=== PATIENT | male | born 1990 | race African-American/Black ===

== ENCOUNTER 2021-11-02 15:03 | Emergency (ER) | payer OTHER ==
[2021-11-02] MEDS ORDERED: ONDANSETRON 4 MG/2 ML VIAL ONE (15:45)
[2021-11-02] MEDS ORDERED: MORPHINE 4 MG/ML SYR ONE (15:45)
--- NOTE | 2021-11-02 15:58 | RAD REPORT ---
EXAM DESCRIPTION: CT - Head C Spine Mpr Wo Con - 11/02/2021 3:36 pm CLINICAL HISTORY: Seizure /Head and neck injury status post fall. Head and neck pain COMPARISON: None. TECHNIQUE: Computed axial tomography of the head and cervical spine was obtained. Sagittal and coronal reconstruction was performed. All CT scans are performed using dose optimization technique as appropriate and may include automated exposure control or mA/KV adjustment according to patient size. FINDINGS: An intracranial bleed is not seen. The ventricles are normal in caliber. An extra-axial fl uid collection is not noted.Fluid within the visualized sinuses and mastoids is not seen A cervical fracture is not visualized. No dislocation is noted. IMPRESSION: No acute intracranial abnormality is seen. A cervical fracture is not visualized. If the patient continues to have symptoms to suggest intracra nial /spinal cord pathology then MRI would be recommended
[2021-11-02 16:06] LABS: Urine Blood Negative (Negative); Urine Glucose Negative (Negative); Urine Protein Negative (Negative); Urine Specific Gravity 1.025 (1.005-1.030)
[2021-11-02 16:28] LABS: Barbiturates NEGATIVE (NEGATIVE); Benzodiazepines NEGATIVE (NEGATIVE); Cocaine NEGATIVE (NEGATIVE); METHAMPHETAM NEGATIVE (NEGATIVE); Methadone NEGATIVE (NEGATIVE); Opiates NEGATIVE (NEGATIVE); Phencyclidine NEGATIVE (NEGATIVE); THC Cannibis NEGATIVE (NEGATIVE)
--- NOTE | 2021-11-02 16:43 | RAD REPORT ---
EXAM DESCRIPTION: RAD - Shoulder Right 2 View - 11/02/2021 4:04 pm CLINICAL HISTORY: Right shoulder pain FINDINGS: No fracture seen Humeral head dislocation.
--- NOTE | 2021-11-02 16:44 | RAD REPORT ---
EXAM DESCRIPTION: RAD - Elbow Right 3 View - 11/02/2021 4:05 pm CLINICAL HISTORY: Elbow pain FINDINGS: No fracture or dislocation seen
[2021-11-02 17:02] LABS: Absolute Lymphocytes (CBC) 3.4 K/uL (0.7-4.9); Hematocrit 45.3 % (39.6-49.0); Lymphocytes % 35.1 % (15.3-44.8); MPV 6.8 fL (7.6-11.3); RBC Red Blood Cell Count 5.02 M/uL (4.33-5.43)
[2021-11-02] MEDS ORDERED: FENTANYL CITR 100 MCG/2 ML ONE (17:03)
[2021-11-02] MEDS ORDERED: propofoL 200 MG/20 ML VIAL IV ONE ×2 (17:03→17:25)
[2021-11-02 17:04] LABS: Protime INR 0.99
[2021-11-02 17:12] LABS: ALT/SGPT 46 U/L (12-78); AST/SGOT 13 U/L (15-37); Albumin 3.6 g/dL (3.4-5.0); Alkaline Phosphatase 117 U/L (45-117); BUN Blood Urea Nitrogen 11 mg/dL (7-18); Bicarbonate 28 mmol/L (21-32); Bilirubin Total 0.3 mg/dL (0.2-1.0); Glucose Level 78 mg/dL (74-106); Potassium 4.1 mmol/L (3.5-5.1); Protein, Total 8.3 g/dL (6.4-8.2); Sodium Level 137 mmol/L (136-145)
[2021-11-02 17:14] LABS: Bilirubin Direct < 0.1 mg/dL (0-0.2)
[2021-11-02] MEDS ORDERED: NA CHLORIDE 0.9% 1,000 ML ONE (17:29)
[2021-11-02] MEDS ORDERED: LEVETIRACETAM 500 MG/5 ML VIAL IV ONE (18:55)
[2021-11-02] MEDS ORDERED: KETOROLAC 30 MG/ML INJ ONE (18:59)
[2021-11-02] MEDS ORDERED: NA CHLORIDE 0.9% 100 ML IV ONE (19:00)
--- NOTE | 2021-11-02 19:13 | EDPHYS ---
Physician Documentation [facility] Name: Emily Schwartz Age: 31 yrs Sex: Male : 1990 Arrival Date: 11/02/2021 Time: 15:08 Bed 26 Private MD: ED Physician Dung Kaplan HPI: 11/02 15:20 This 31 yrs old Black Male presents to ER via Law Enforcement with complaints of cp Seizure, Shoulder Pain. 15:20 The patient presents after having a single isolated seizure, that lasted an unknown cp period of time, the episode(s) was witnessed, correctional program officer. Character of seizure(s): Loss of consciousness: the patient experienced loss of consciousness, Motor activity: generalized, shaking all over. Seizure onset: today, about 1300. Context: Contributing factors: non compliance with seizure medication. Seizure Hx: Original onset: longstanding, Seizure medications: Keppra. Associated injury: Right upper extremity: right shoulder, decreased range of motion, pain, tenderness. Current symptoms: right shoulder pain. 15:20 Patient reportedly fell from bed after having seizure for unknown duration. Patient cp reports pain to right shoulder and has history of dislocating right shoulder. Historical: - Allergies: 15:17 No Known Allergies; jl7 - Home Meds: 15:17 aspirin 81 mg Oral tab [Active]; atorvastatin 10 mg oral tab [Active]; Keppra 500 mg jl7 Oral tab [Active]; hydrochlorothiazide 25 mg Oral tab [Active]; - PMHx: 15:17 Seizure; Hypertensive disorder; Hypercholesterolemia; Asthma; jl7 - Immunization history:: Client reports receiving the 2nd dose of the Covid vaccine, Moderna. - Social history:: Smoking status: Patient denies any tobacco usage or history of. ROS: 15:25 Constitutional: Negative for body aches, chills, fever, poor PO intake. cp 15:25 Eyes: Negative for injury, pain, redness, and discharge. cp 15:25 Neck: Negative for stiffness. 15:25 Cardiovascular: Negative for chest pain, edema, palpitations. 15:25 Respiratory: Negative for cough, shortness of breath, wheezing. 15:25 Abdomen/GI: Negative for abdominal pain, nausea, vomiting, and diarrhea. 15:25 Back: Negative for pain at rest, pain with movement. 15:25 MS/extremity: Positive for injury or acute deformity, decreased range of motion, pain, of the right shoulder, Negative for paresthesias. 15:25 Neuro: Positive for history of seizure, Negative for altered mental status, headache. 15:25 All other systems are negative. Exam: 15:30 Constitutional: The patient appears in no acute distress, alert, awake, non-toxic, well cp developed, well nourished, obese. 15:30 Head/Face: Normocephalic, atraumatic. cp 15:30 Eyes: Periorbital structures: appear normal, Pupils: equal, round, and reactive to light and accomodation, Extraocular movements: intact throughout, Conjunctiva: normal, no exudate, no injection, Sclera: no appreciated abnormality, Lids and lashes: appear normal, bilaterally. 15:30 ENT: External ear(s): are unremarkable, Nose: is normal, Mouth: Lips: moist, Oral mucosa: moist, Posterior pharynx: Airway: no evidence of obstruction, patent. 15:30 Neck: C-spine: vertebral tenderness, that is mild, appreciated at C5 and C6, crepitus, is not appreciated, ROM/movement: is normal, is supple, without pain, no range of motions limitations. 15:30 Chest/axilla: Inspection: normal, Palpation: is normal, no crepitus, no tenderness. 15:30 Cardiovascular: Rate: normal, Rhythm: regular, Pulses: Pulses are 2+ in right radial artery and left radial artery. Heart sounds: murmur, not appreciated. 15:30 Respiratory: the patient does not display signs of respiratory distress, Respirations: normal, no use of accessory muscles, no retractions, labored breathing, is not present, Breath sounds: are clear throughout, no decreased breath sounds, no stridor, no wheezing. 15:30 Abdomen/GI: Inspection: abdomen appears normal, Palpation: abdomen is soft and non-tender, in all quadrants. 15:30 Back: pain, is absent, ROM is normal. 15:30 Musculoskeletal/extremity: Extremities: grossly normal except: noted in the right shoulder: decreased ROM, pain, tenderness, ROM: limited active range of motion, in the right shoulder, Perfusion: the extremity is normally perfused throughout, the right arm Sensation intact. 15:30 Neuro: Orientation: to person, place \T\ time. Mentation: is normal. 16:05 ECG was reviewed by the Attending Physician. cp Vital Signs: 15:16 BP 124 / 98; Pulse 89; Resp 17; Temp 98.8; Pulse Ox 98% on R/A; Weight 140.61 kg; jl7 Height 6 ft. 0 in. (182.88 cm); Pain 10/10; 16:22 BP 125 / 95; Pulse 75; Resp 20; Pulse Ox 98% on R/A; lr4 19:24 BP 133 / 68; Pulse 69; Resp 20; Pulse Ox 99% ; lr4 15:16 Body Mass Index 42.04 (140.61 kg, 182.88 cm) jl7 [place] Coma Score: 15:17 Eye Response: spontaneous(4). Verbal Response: oriented(5). Motor Response: obeys jl7 commands(6). Total: 15. MDM: 15:13 Patient medically screened. cp 19:10 Data reviewed: vital signs, nurses notes, lab test result(s), EKG, radiologic studies, cp plain films. 19:10 Test interpretation: by ED physician or midlevel provider: ECG, plain radiologic cp studies. Response to treatment: the patient's symptoms have markedly improved after treatment, shoulder relocated. No seizure activity observed while monitoring patient in ED. Patient refuses administration of seizure medication at this time. Will discharge back into custody of correctional officers. 11/02 15:13 Order name: Acetaminophen; Complete Time: 19:01 cp 11/02 15:13 Order name: Basic Metabolic Panel; Complete Time: 19: cp 11/02 15:13 Order name: CBC with Diff; Complete Time: 19: cp 11/02 19:02 Interpretation: Normal except: PLT 409; MPV 6.8. cp 11/02 15:13 Order name: ETOH Level; Complete Time: 19: cp 11/02 15:13 Order name: Hepatic Function; Complete Time: 19: cp 11/02 19:02 Interpretation: Normal except: AST 13; TP 8.3; GLOB 4.7; A/G 0.8. cp 11/02 15:13 Order name: PT-INR; Complete Time: 19: cp 11/02 15:13 Order name: Ptt, Activated; Complete Time: 19: cp 11/02 15:13 Order name: Salicylate; Complete Time: 19:01 cp 11/02 15:13 Order name: Urine Drug Screen; Complete Time: 16:45 cp 11/02 19:02 Interpretation: Reviewed. cp 11/02 15:13 Order name: CT Head C Spine; Complete Time: 16:45 cp 11/02 16:45 Interpretation: Reviewed report. cp 11/02 15:13 Order name: XRAY Shoulder RIGHT 2 view; Complete Time: 16:45 cp 11/02 16:46 Interpretation: Reviewed. cp 11/02 15:13 Order name: XRAY Elbow RIGHT 3 view; Complete Time: 16:45 cp 11/02 16:46 Interpretation: Report reviewed. cp 11/02 16:05 Order name: Urine Dipstick-Ancillary; Complete Time: 16:45 EDMS 11/02 15:13 Order name: EKG; Complete Time: 15:13 cp 11/02 15:13 Order name: EKG - Nurse/Tech; Complete Time: 16:18 cp 11/02 15:13 Order name: IV Saline Lock; Complete Time: 16:18 cp 11/02 15:13 Order name: Labs collected and sent; Complete Time: 16:18 cp 11/02 15:13 Order name: Suicide Screening ([place]); Complete Time: 16:23 cp 11/02 18:58 Order name: Shoulder 1 View; Complete Time: 19:39 EDMS 11/02 19:39 Interpretation: Report reviewed. cp 11/02 15:13 Order name: Urine Dipstick-Ancillary (obtain specimen); Complete Time: 16:18 cp EC:05 Rate is 72 beats/min. Rhythm is regular. GA interval is normal. QRS interval is normal. cp QT interval is normal. T waves are Inverted in lead aVR. Interpreted by me. Reviewed by me. Administered Medications: 16:21 Drug: Zofran (Ondansetron) 4 mg Route: IVP; Site: left antecubital; lr4 16:22 Follow up: Response: No adverse reaction lr4 16:22 Drug: morphine 4 mg Route: IVP; Site: left antecubital; lr4 16:22 Follow up: Response: Pain is decreased lr4 17:26 Drug: fentaNYL (PF) 25 mcg Route: IVP; Site: left antecubital; lr4 17:47 Follow up: Response: Pain is increased lr4 17:28 Drug: Propofol 100 mg Route: IVP; Site: left antecubital; lr4 17:47 Follow up: Response: No adverse reaction lr4 17:30 Drug: Propofol 100 mg Route: IVP; Site: left antecubital; lr4 17:48 Follow up: Response: No adverse reaction lr4 17:47 Drug: fentaNYL (PF) 25 mcg Route: IVP; Site: left antecubital; lr4 18:50 Follow up: Response: Pain is decreased lr4 18:26 Drug: Propofol 100 mg Route: IVP; Site: left antecubital; lr4 19:23 Follow up: Response: No adverse reaction lr4 19:02 Drug: Ketorolac 30 mg Route: IVP; Site: left antecubital; lr4 19:02 Follow up: Response: Pain is decreased lr4 19:23 Not Given (Patient Refused): Keppra (levETIRAcetam) 1000 mg IV at calculated rate once lr4 Disposition: 19:40 Co-signature as Attending Physician, Dung Kaplan MD I agree with the assessment and kdr plan of care. Disposition Summary: 11/02/21 19:12 Discharge Ordered Location: Home cp Problem: new cp Symptoms: have improved cp Condition: Stable cp Diagnosis - Other seizures cp - Other dislocation of right shoulder joint cp Followup: cp - With: Private Physician - When: 2 - 3 days - Reason: Recheck today's complaints Discharge Instructions: - Discharge Summary Sheet cp - Shoulder Dislocation cp - Seizure, Adult cp Forms: - Medication Reconciliation Form cp - Thank You Letter cp - Antibiotic Education cp - Prescription Opioid Use cp Prescriptions: - Ibuprofen 800 mg Oral Tablet - take 1 tablet by ORAL route every 8 hours As needed take with food; 30 tablet; cp Refills: 0, Product Selection Permitted Signatures: Dispatcher [employer] EDMS Dung Kaplan MD MD kdr Jarett Machado PA PA cp Mariely Douglass RN RN jl7 Kathya Billings RN RN lr4 Corrections: (The following items were deleted from the chart) 17:41 17:39 Shoulder Right 2 View+RAD.RAD.BRZ ordered. EDMS EDMS 18:58 17:39 Shoulder Right 2 View+RAD.RAD.BRZ ordered. EDMS EDMS
--- NOTE | 2021-11-02 19:13 | ER ---
Nurse's Notes [facility] Name: Emily Schwartz Age: 31 yrs Sex: Male : 1990 Arrival Date: 11/02/2021 Time: 15:08 Bed 26 Private MD: Diagnosis: Other seizures;Other dislocation of right shoulder joint Presentation: 11/02 15:08 Chief complaint: [facility] unit nurse reports pt reported having a seizure, fell of the 7 bed and is c/o right shoulder pain, pt A\\T\\Ox4. Coronavirus screen: At this time, the client does not indicate any symptoms associated with coronavirus-19. Ebola Screen: No symptoms or risks identified at this time. Onset of symptoms was November 02, 2021. Care prior to arrival: Right arm in sling. 15:08 Method Of Arrival: Law Enforcement: [place] [employer] jl7 15:08 Acuity: MARIA E 3 jl7 15:16 Initial Sepsis Screen: Does the patient meet any 2 criteria? No. Patient's initial jl7 sepsis screen is negative. Does the patient have a suspected source of infection? No. Patient's initial sepsis screen is negative. Risk Assessment: Do you want to hurt yourself or someone else? Patient reports no desire to harm self or others. Triage Assessment: 15:17 General: Appears in no apparent distress. uncomfortable, Behavior is calm, cooperative, jl7 appropriate for age. Pain: Complains of pain in right shoulder and posterior neck Pain currently is 10 out of 10 on a pain scale. Neuro: Level of Consciousness is awake, alert, obeys commands, Oriented to person, place, time, situation. Cardiovascular: Patient's skin is warm and dry. Respiratory: Airway is patent Respiratory effort is even, unlabored, Respiratory pattern is regular, symmetrical. Derm: Skin is pink, warm \\T\\ dry. Historical: - Allergies: 15:17 No Known Allergies; jl7 - Home Meds: 15:17 aspirin 81 mg Oral tab [Active]; atorvastatin 10 mg oral tab [Active]; Keppra 500 mg jl7 Oral tab [Active]; hydrochlorothiazide 25 mg Oral tab [Active]; - PMHx: 15:17 Seizure; Hypertensive disorder; Hypercholesterolemia; Asthma; jl7 - Immunization history:: Client reports receiving the 2nd dose of the Covid vaccine, Moderna. - Social history:: Smoking status: Patient denies any tobacco usage or history of. Screenin:25 Abuse screen: Denies threats or abuse. Denies injuries from another. Nutritional jl7 screening: No deficits noted. Tuberculosis screening: No symptoms or risk factors identified. Fall Risk IV access (20 points). Total Morrison Fall Scale indicates No Risk (0-24 pts). Assessment: 16:19 General: Appears in no apparent distress. comfortable, Behavior is calm, cooperative. lr4 Pain: Complains of pain in right arm Pain currently is 8 out of 10 on a pain scale. Neuro: No deficits noted. Cardiovascular: No deficits noted. Respiratory: No deficits noted. Musculoskeletal: Circulation, motion, and sensation intact. Capillary refill < 3 seconds, Range of motion: limited in right shoulder Swelling absent Tenderness present in right arm Reports pain in right arm and R shoulder. Psych: 16:24 [place] Suicide Severity Screening: In the past month, have you wished you were lr4 or wished you could go to sleep and not wake up? Patient responds "No." "In the past month, have you actually had any thoughts of killing yourself?" Patient responds "no." "In your lifetime, have you ever done anything, started to do anything, or prepared to do anything to end your life?" Patient responds "no.". Subjective: Patient's mood is calm cooperative Delusions are denied, Hallucinations are denied Having thoughts of. Objective: Patient is cooperative. Interventions: intermediate sitter is at bedside, pt shackled. Safety Checks: Door is open. Pt denies substance abuse. Commitment: none. Vital Signs: 15:16 BP 124 / 98; Pulse 89; Resp 17; Temp 98.8; Pulse Ox 98% on R/A; Weight 140.61 kg; jl7 Height 6 ft. 0 in. (182.88 cm); Pain 10/10; 16:22 BP 125 / 95; Pulse 75; Resp 20; Pulse Ox 98% on R/A; lr4 19:24 BP 133 / 68; Pulse 69; Resp 20; Pulse Ox 99% ; lr4 15:16 Body Mass Index 42.04 (140.61 kg, 182.88 cm) jl7 [place] Coma Score: 15:17 Eye Response: spontaneous(4). Verbal Response: oriented(5). Motor Response: obeys jl7 commands(6). Total: 15. ED Course: 15:08 Patient arrived in ED. jl7 15:08 Arm band placed on right wrist. jl7 15:10 Triage completed. jl7 15:10 Jarett Machado PA is PHCP. cp 15:10 Dung Kaplan MD is Attending Physician. cp 15:25 Patient has correct armband on for positive identification. Bed in low position. Call jl7 light in reach. Side rails up X2. Security at bedside. 15:36 CT Head C Spine In Process Unspecified. EDMS 15:39 Kathya Billings, RN is Primary Nurse. lr4 15:58 EKG done, by ED staff, reviewed by Jarett Machado PA by kathya beaulieu. lr4 16:04 XRAY Shoulder RIGHT 2 view In Process Unspecified. EDMS 16:05 XRAY Elbow RIGHT 3 view In Process Unspecified. EDMS 16:18 No provider procedures requiring assistance completed. Inserted saline lock: 20 gauge lr4 in left antecubital area, using aseptic technique. by Kati. 16:20 Initial lab(s) drawn, by ca, sent to lab. dh3 16:21 Seizure precautions initiated. Pulse ox on. NIBP on. Sitter at bedside. Door closed. lr4 Visitors limited. Verbal reassurance given. 18:59 Shoulder 1 View In Process Unspecified. EDMS 19:25 IV discontinued, intact, bleeding controlled, No redness/swelling at site. Pressure lr4 dressing applied. Administered Medications: 16:21 Drug: Zofran (Ondansetron) 4 mg Route: IVP; Site: left antecubital; lr4 16:22 Follow up: Response: No adverse reaction lr4 16:22 Drug: morphine 4 mg Route: IVP; Site: left antecubital; lr4 16:22 Follow up: Response: Pain is decreased lr4 17:26 Drug: fentaNYL (PF) 25 mcg Route: IVP; Site: left antecubital; lr4 17:47 Follow up: Response: Pain is increased lr4 17:28 Drug: Propofol 100 mg Route: IVP; Site: left antecubital; lr4 17:47 Follow up: Response: No adverse reaction lr4 17:30 Drug: Propofol 100 mg Route: IVP; Site: left antecubital; lr4 17:48 Follow up: Response: No adverse reaction lr4 17:47 Drug: fentaNYL (PF) 25 mcg Route: IVP; Site: left antecubital; lr4 18:50 Follow up: Response: Pain is decreased lr4 18:26 Drug: Propofol 100 mg Route: IVP; Site: left antecubital; lr4 19:23 Follow up: Response: No adverse reaction lr4 19:02 Drug: Ketorolac 30 mg Route: IVP; Site: left antecubital; lr4 19:02 Follow up: Response: Pain is decreased lr4 19:23 Not Given (Patient Refused): Keppra (levETIRAcetam) 1000 mg IV at calculated rate once lr4 Outcome: 16:21 Condition: stable lr4 19:12 Discharge ordered by . cp 19:25 Discharged to Law Enforcement lr4 19:25 Discharge instructions given to patient, police. 19:45 Patient left the ED. as6 Signatures: Dispatcher [employer] EDMS Jarett Machado PA PA cp Leal, Jahala, RN RN jl7 Ila Gallagher 3 Sotero Morales RN RN as6 Kathya Billings RN RN lr4
--- NOTE | 2021-11-02 19:30 | RAD REPORT ---
EXAM DESCRIPTION: RAD - Shoulder 1 View - 11/02/2021 7:00 pm CLINICAL HISTORY: Right shoulder dislocation FINDINGS: Previously described dislocation appears reduced
[2021-11-02 19:55] VITALS: TEMP 98.8
[2021-11-02 19:58] VITALS: BP 133/68; O2SAT 99
--- NOTE | 2021-11-04 07:27 | EKG ---
Test Date: 2021-11-02 Test Time: 15:58:56 Certified Medical Aide: ALEX MEASUREMENT RESULTS: Intervals: Rate: 72 NM: 160 QRSD: 82 QT: 348 QTc: 381 [place]: P: 39 NM: 160 QRS: 64 T: 50 INTERPRETIVE STATEMENTS: Normal sinus rhythm Nonspecific ST abnormality Abnormal ECG No previous ECG available for comparison Electronically Signed On 11-04-21 07:22:30 CDT by Remington Roa
== END 2021-11-02 19:45 | disposition home or self-care (01) ==
LOC: ER 15:03
DX: G40.89 Other seizures (principal); S43.084A Other dislocation of right shoulder joint, initial encounter; W06.XXXA Fall from bed, initial encounter; Y92.143 Cell of prison as the place of occurrence of the external cause; I10 Essential (primary) hypertension
CPT/HCPCS: 93005; 85025; 80048; 36415; 80320; 80329 ×2; 85610; 80076; 85730; 81003; 80307; 70450; 72125; 73020; 73080; 73030; 96375; 96374; 99285; J2405; J1953; J2704; J3010; J7030

== ENCOUNTER 2021-11-16 09:45 | Emergency (ER) | payer OTHER ==
--- NOTE | 2021-11-16 11:13 | RAD REPORT ---
EXAM DESCRIPTION: RAD - Shoulder Right 2 View - 11/16/2021 10:53 am CLINICAL HISTORY: PAIN COMPARISON: Shoulder Right 2 View dated 11/02/2021 FINDINGS/IMPRESSION: Right shoulder dislocation, anterior inferior. No fracture identified.
[2021-11-16] MEDS ORDERED: ONDANSETRON 4 MG/2 ML VIAL ONE (11:29)
[2021-11-16] MEDS ORDERED: MORPHINE 4 MG/ML SYR ONE (11:29)
[2021-11-16] MEDS ORDERED: KETOROLAC 30 MG/ML INJ ONE (11:34)
[2021-11-16] MEDS ORDERED: NA CHLORIDE 0.9% 500 ML ONE (11:34)
[2021-11-16] MEDS ORDERED: ETOMIDATE 20 MG/10 ML VIAL IV ONE (11:39)
[2021-11-16] MEDS ORDERED: MIDAZOLAM HCL 2 MG/2 ML INJ ONE (11:39)
[2021-11-16] MEDS ORDERED: LORazepam 2 MG/ML VIAL ONE ×2 (11:59→12:03)
[2021-11-16] MEDS ORDERED: LEVETIRACETAM 500 MG/5 ML VIAL IV ONE (12:03)
[2021-11-16] MEDS ORDERED: NA CHLORIDE 0.9% 100 ML IV ONE (12:04)
--- NOTE | 2021-11-16 12:15 | RAD REPORT ---
EXAM DESCRIPTION: RAD - Shoulder 1 View - 11/16/2021 12:10 pm CLINICAL HISTORY: post reduction COMPARISON: Shoulder 1 View dated 11/02/2021 FINDINGS/IMPRESSION: The right shoulder appears relocated on this single view. Possible shoulder sravani nt effusion.
[2021-11-16 12:27] LABS: Hematocrit 41.4 % (39.6-49.0); Lymphocytes % 36.9 % (15.3-44.8); MPV 6.7 fL (7.6-11.3); RBC Red Blood Cell Count 4.63 M/uL (4.33-5.43)
[2021-11-16 12:44] LABS: ALT/SGPT 46 U/L (12-78); AST/SGOT 17 U/L (15-37); Albumin 3.3 g/dL (3.4-5.0); Alkaline Phosphatase 100 U/L (45-117); BUN Blood Urea Nitrogen 14 mg/dL (7-18); Bicarbonate 24 mmol/L (21-32); Bilirubin Total 0.3 mg/dL (0.2-1.0); Glucose Level 84 mg/dL (74-106); Protein, Total 7.8 g/dL (6.4-8.2); Sodium Level 138 mmol/L (136-145)
--- NOTE | 2021-11-16 13:00 | RAD REPORT ---
EXAM DESCRIPTION: CT - Shoulder Right Wo Cont - 11/16/2021 12:47 pm CLINICAL HISTORY: dislocation/reduction COMPARISON: Shoulder 1 View dated 11/16/2021; Shoulder Right 2 View dated 11/16/2021 TECHNIQUE: Axial 3 millimeter noncontrast images of right shoulder were obtained with sagittal and c oronal reformatted images generated and reviewed. All CT scans are performed using dose optimization technique as appropriate and may include automate d exposure control or mA/KV adjustment according to patient size. FINDINGS: Due to motion on the initial acquisition repeat imaging of the shoulder joint was obtained . Scapula is intact. No clavicle fracture. Sternoclavicular and acromioclavicular joints normal as well . No proximal humerus fracture is present. On the initial acquisition the humeral head is normally po sitioned relative to the bony glenoid. On the second acquisition the humeral head is posteriorly disp laced with the apex of the humeral head articular surface perched on the posterior rim of the glenoid . By technologist report, the patient is changing position often. The posterior displacement on the s econd acquisition may be due to joint laxity. IMPRESSION: No fracture of the proximal humerus, clavicle or scapula. On the initial acquisition the humeral head is normally positioned relative to the glenoid. On the se cond acquisition there is posterior displacement of the humeral head with the articular apex perched on the posterior acetabular rim. Patient likely has significant joint laxity that allows for this deg ree of movement.
--- NOTE | 2021-11-16 13:32 | ER ---
Nurse's Notes [facility] Name: Emily Schwartz Age: 31 yrs Sex: Male : 1990 Arrival Date: 11/16/2021 Time: 09:48 Bed 2 Private MD: Diagnosis: Recurrent dislocation, right shoulder;Epileptic seizures related to external causes, not intractable Presentation: 11/16 09:49 Chief complaint: Patient states: woke up this am and rt shoulder was hurting worse. [facility] Reports that he was seen 1wk prior for dislocated rt shoulder and has been wearing his sling. Coronavirus screen: Vaccine status: Patient reports receiving the 2nd dose of the covid vaccine. Ebola Screen: Patient negative for fever greater than or equal to 101.5 degrees Fahrenheit, and additional compatible Ebola Virus Disease symptoms Patient denies exposure to infectious person. Initial Sepsis Screen: Does the patient meet any 2 criteria? No. Patient's initial sepsis screen is negative. Does the patient have a suspected source of infection? No. Patient's initial sepsis screen is negative. Risk Assessment: Do you want to hurt yourself or someone else? Patient reports no desire to harm self or others. Onset of symptoms was November 16, 2021. 09:49 Method Of Arrival: Ambulatory [facility] 09:49 Acuity: MARIA E 3 [facility] Triage Assessment: 09:52 General: Appears in no apparent distress. Behavior is calm, cooperative. Pain: [facility] Complains of pain in anterior aspect of right shoulder Pain currently is 6 out of 10 on a pain scale. Quality of pain is described as aching, shooting. Historical: - Home Meds: 09:51 aspirin 81 mg Oral tab [Active]; [facility] - PMHx: 09:51 Asthma; Hypercholesterolemia; Hypertensive disorder; Seizure; [facility] - Immunization history:: Adult Immunizations up to date. - Social history:: Smoking status: Patient denies any tobacco usage or history of. - Family history:: not pertinent. Screenin:53 Abuse screen: Denies threats or abuse. Nutritional screening: No deficits noted. [facility] Tuberculosis screening: No symptoms or risk factors identified. Fall Risk Gait- Impaired (20 pts.). Assessment: 09:50 General: Appears uncomfortable, Behavior is calm, cooperative. [facility] 09:50 Pain: Complains of pain in right arm Pain currently is 9 out of 10 on a pain scale. jh6 Quality of pain is described as aching, shooting, Pain began suddenly, Is continuous, Aggravated by increased activity, repositioning. 10:30 Reassessment: No changes from previously documented assessment. Patient and/or family 6 updated on plan of care and expected duration. Pain level reassessed. pt relaxed, on monitor and shoulder immobilizer in place that pt came from [facility] with. 11:35 Reassessment: No changes from previously documented assessment. 6 11:35 Reassessment: pt set up for reduction of shoulder. pt alert iv in place and fluids 6 running. n/c 2lpm placed on pt and suction at bedside. 11:40 Reassessment: Attempted to have pt lay on abd and reduce rt shoulder. Pt was jh6 cooperative but was unable to reduce dislocation. further meds for sedation was ordered by Dr Sapp and RT called. . 11:50 Reassessment: Pt tolerated reduction well. 4mg of Versed given and 12mg Etomidate sivp. 6 RT at bedside and shoulder immobilizer used while waiting for x ray. . 12:05 Reassessment: pt had seizure lasting aprox 1-2min. MD Sapp aware and meds ordered. 6 Respiratory therapy at bedside. 12:52 General: Appears in no apparent distress. Behavior is calm, cooperative. Pain: 6 Complains of pain in anterior aspect of right shoulder and posterior aspect of right shoulder Pain currently is 9 out of 10 on a pain scale. Quality of pain is described as aching, Pain began suddenly, Aggravated by increased activity, repositioning. Neuro: No deficits noted. Level of Consciousness is awake, alert, Oriented to person, place, time. 13:20 Reassessment: Patient and/or family updated on plan of care and expected duration. Pain jh6 level reassessed. pt alert NAD noted, pt states that he is having rt shoulder pain. 13:20 Pain: Complains of pain in anterior aspect of right shoulder and posterior aspect of jh6 right shoulder Pain currently is 9 out of 10 on a pain scale. Quality of pain is described as aching, shooting. Vital Signs: 09:49 BP 135 / 89; Pulse 90; Resp 17; Temp 98.6(O); Pulse Ox 96% on R/A; Weight 139.71 kg; jh6 Height 6 ft. 0 in. (182.88 cm); Pain 8/10; 11:41 BP 147 / 100; Pulse 87; Resp 20; Pulse Ox 100% ; Pain 10/10; jh6 11:41 BP 147 / 108; Pulse 86; Resp 20; Pulse Ox 100% ; Pain 8/10; jh6 11:45 BP 126 / 105; Pulse 93; Resp 17; Pulse Ox 100% ; jh6 11:53 BP 159 / 99; Pulse 84; Resp 17; Pulse Ox 100% ; jh6 12:08 BP 141 / 104; Pulse 82; Resp 13; Pulse Ox 100% on 2 lpm NC; jh6 12:16 BP 160 / 105; Pulse 82; Resp 18; Pulse Ox 100% ; Pain 7/10; jh6 13:20 BP 130 / 90; Pulse 80; Resp 17; Pulse Ox 100% ; Pain 9/10; jh6 13:45 BP 127 / 82; Pulse 76; Resp 18; Pulse Ox 100% ; Pain 0/10; jh6 09:49 Body Mass Index 41.77 (139.71 kg, 182.88 cm) 6 ED Course: 09:48 Patient arrived in ED. ll1 09:51 Jarett Sapp MD is Attending Physician. luz 09:51 Triage completed. jh6 09:52 Arm band placed on left wrist. Patient placed in an exam room, on a stretcher. jh6 09:53 Call light in reach. Side rails up X 1. Adult w/ patient. jh6 10:54 Shoulder Right (2 View) XRAY In Process Unspecified. EDMS 11:[address] jh6 11:30 Jolly Hanna, PHAM is Primary Nurse. jh6 12:11 Shoulder 1 View In Process Unspecified. EDMS 12:14 Comprehensive Metabolic Panel Sent. mb7 12:14 CBC with Diff Sent. mb7 12:[address] Patient moved back from CT. jh6 12:49 Shoulder Right Wo Cont In Process Unspecified. EDMS 13:32 Omar Manjarrez MD is Referral Physician. luz 13:32 Mark Pitts MD is Referral Physician. luz 13:47 No provider procedures requiring assistance completed. jh6 13:47 IV discontinued, intact, bleeding controlled, No redness/swelling at site. Pressure jh6 dressing applied, iv was d/c'd by pt before nursing staff could remove. no bleeding or swelling noted. Administered Medications: 11:30 Drug: morphine 4 mg Route: IVP; Site: left antecubital; [facility] 11:40 Follow up: Response: Pain is unchanged, physician notified [facility] 11:30 Drug: Zofran (Ondansetron) 4 mg Route: IVP; Site: left antecubital; [facility] 11:40 Follow up: Response: Pain is unchanged, physician notified [facility] 11:40 Drug: NS 0.9% 500 ml Route: IV; Rate: bolus; Site: left antecubital; [facility] 11:40 Drug: Ketorolac 30 mg Route: IVP; Site: left antecubital; [facility] 11:40 Follow up: Response: Pain is unchanged, physician notified [facility] 11:40 Drug: Etomidate 20 mg Route: IVP; Site: left antecubital; [facility] 11:40 Drug: Versed (midazolam) 2 mg Route: IVP; Site: left antecubital; [facility] 11:45 Drug: Ativan (LORazepam) 1 mg Route: IVP; Site: left antecubital; [facility] 12:47 Follow up: Response: No adverse reaction [facility] 11:50 Drug: Keppra (levETIRAcetam) 1000 mg Route: IV; Rate: per protocol; Site: left [facility] antecubital; 12:48 Follow up: Response: No adverse reaction [facility] 12:26 CANCELLED (Duplicate Order): Etomidate 10 mg IVP once [facility] 12:48 Not Given (not indicatedd): Ativan (LORazepam) 1 mg IVP once [facility] 13:41 Drug: Kend[place] (HYDROcodone-acetaminophen) 10 mg-325 mg 1 tabs Route: PO; 6 Outcome: 13:32 Discharge ordered by MD. escobar 13:47 Discharged to home ambulatory. [facility] 13:47 Condition: improved 13:47 Discharge instructions given to patient, Instructed on discharge instructions, follow up and referral plans. Demonstrated understanding of instructions, follow-up care, medications, Prescriptions given X 2. 13:48 Patient left the ED. [facility] Signatures: Dispatcher [employer] EDRI Jarett Sapp MD MD cha Lewis, Lynsay RN RN 1 Jolly Hanna RN RN [facility] Mallorie Yovana mb7
--- NOTE | 2021-11-16 13:32 | EDPHYS ---
Physician Documentation [facility] Name: Emily Schwartz Age: 31 yrs Sex: Male : 1990 Arrival Date: 11/16/2021 Time: 09:48 Bed 2 Private MD: ARIELLA Physician Jarett Sapp HPI: 11/16 10:06 This 31 yrs old Black Male presents to ER via Ambulatory with complaints of shoulder luz dislocated in sleep. 10:06 The patient or guardian complains of decreased range of motion, pain. right shoulder. luz Context: The problem was sustained at home, at a C. Onset: The symptoms/episode began/occurred just prior to arrival, this morning. Modifying factors: the symptoms are alleviated by remaining still, The symptoms are aggravated by movement. The patient has not experienced similar symptoms in the past. Historical: - Home Meds: 09:51 aspirin 81 mg Oral tab [Active]; 6 - PMHx: 09:51 Asthma; Hypercholesterolemia; Hypertensive disorder; Seizure; [facility] - Immunization history:: Adult Immunizations up to date. - Social history:: Smoking status: Patient denies any tobacco usage or history of. - Family history:: not pertinent. ROS: 10:06 Constitutional: Negative for fever, chills, and weight loss, Eyes: Negative for injury, luz pain, redness, and discharge, ENT: Negative for injury, pain, and discharge, Neck: Negative for injury, pain, and swelling, Cardiovascular: Negative for chest pain, palpitations, and edema, Respiratory: Negative for shortness of breath, cough, wheezing, and pleuritic chest pain, Abdomen/GI: Negative for abdominal pain, nausea, vomiting, diarrhea, and constipation, Back: Negative for injury and pain, : Negative for injury, bleeding, discharge, and swelling, Skin: Negative for injury, rash, and discoloration, Neuro: Negative for headache, weakness, numbness, tingling, and seizure, Psych: Negative for depression, anxiety, suicide ideation, homicidal ideation, and hallucinations, Allergy/Immunology: Negative for hives, rash, and allergies, Endocrine: Negative for neck swelling, polydipsia, polyuria, polyphagia, and marked weight changes, Hematologic/Lymphatic: Negative for swollen nodes, abnormal bleeding, and unusual bruising. 10:06 MS/extremity: Positive for pain, tenderness, of the anterior aspect of right shoulder and posterior aspect of right shoulder. Exam: 10:07 Constitutional: This is a well developed, well nourished patient who is awake, alert, luz and in no acute distress. Head/Face: Normocephalic, atraumatic. Eyes: Pupils equal round and reactive to light, extra-ocular motions intact. Lids and lashes normal. Conjunctiva and sclera are non-icteric and not injected. Cornea within normal limits. Periorbital areas with no swelling, redness, or edema. ENT: Nares patent. No nasal discharge, no septal abnormalities noted. Tympanic membranes are normal and external auditory canals are clear. Oropharynx with no redness, swelling, or masses, exudates, or evidence of obstruction, uvula midline. Mucous membranes moist. Neck: Trachea midline, no thyromegaly or masses palpated, and no cervical lymphadenopathy. Supple, full range of motion without nuchal rigidity, or vertebral point tenderness. No Meningismus. Chest/axilla: Normal chest wall appearance and motion. Nontender with no deformity. No lesions are appreciated. Cardiovascular: Regular rate and rhythm with a normal S1 and S2. No gallops, murmurs, or rubs. Normal PMI, no JVD. No pulse deficits. Respiratory: Lungs have equal breath sounds bilaterally, clear to auscultation and percussion. No rales, rhonchi or wheezes noted. No increased work of breathing, no retractions or nasal flaring. Abdomen/GI: Soft, non-tender, with normal bowel sounds. No distension or tympany. No guarding or rebound. No evidence of tenderness throughout. Back: No spinal tenderness. No costovertebral tenderness. Full range of motion. Male : Normal genitalia with no discharge or lesions. Skin: Warm, dry with normal turgor. Normal color with no rashes, no lesions, and no evidence of cellulitis. Neuro: Awake and alert, GCS 15, oriented to person, place, time, and situation. Cranial nerves II-XII grossly intact. Motor strength 5/5 in all extremities. Sensory grossly intact. Cerebellar exam normal. Normal gait. Psych: Awake, alert, with orientation to person, place and time. Behavior, mood, and affect are within normal limits. 10:07 Musculoskeletal/extremity: Extremities: grossly normal except: decreased ROM, deformity, pain, ROM: limited active range of motion due to pain, limited passive range of motion due to pain, Circulation is intact in all extremities. the anterior aspect of right shoulder and posterior aspect of right shoulder Compartment Syndrome exam of affected extremity: is normal. Vital Signs: 09:49 BP 135 / 89; Pulse 90; Resp 17; Temp 98.6(O); Pulse Ox 96% on R/A; Weight 139.71 kg; 6 Height 6 ft. 0 in. (182.88 cm); Pain 8/10; 11:41 BP 147 / 100; Pulse 87; Resp 20; Pulse Ox 100% ; Pain 10/10; 6 11:41 BP 147 / 108; Pulse 86; Resp 20; Pulse Ox 100% ; Pain 8/10; 6 11:45 BP 126 / 105; Pulse 93; Resp 17; Pulse Ox 100% ; 6 11:53 BP 159 / 99; Pulse 84; Resp 17; Pulse Ox 100% ; [facility] 12:08 BP 141 / 104; Pulse 82; Resp 13; Pulse Ox 100% on 2 lpm NC; [facility] 12:16 BP 160 / 105; Pulse 82; Resp 18; Pulse Ox 100% ; Pain 7/10; 6 13:20 BP 130 / 90; Pulse 80; Resp 17; Pulse Ox 100% ; Pain 9/10; 6 13:45 BP 127 / 82; Pulse 76; Resp 18; Pulse Ox 100% ; Pain 0/10; [facility] 09:49 Body Mass Index 41.77 (139.71 kg, 182.88 cm) [facility] MDM: 09:51 Patient medically screened. [facility] 10:08 Differential diagnosis: Anterior dislocation with fracture. Data reviewed: vital signs, [facility] nurses notes, radiologic studies, plain films. Data interpreted: ekg monitor tech: rate is 90 beats/min, rhythm is regular, Pulse oximetry: on room air is 96 %. Test interpretation: by ED physician or midlevel provider: plain radiologic studies. Counseling: I had a detailed discussion with the patient and/or guardian regarding: the historical points, exam findings, and any diagnostic results supporting the discharge/admit diagnosis, lab results, radiology results, the need for outpatient follow up, for definitive care, a orthopedic surgeon. 11/16 11:57 Order name: CBC with Diff; Complete Time: 12:39 [facility] 11/16 11:57 Order name: Comprehensive Metabolic Panel; Complete Time: 12:46 [facility] 11/16 09:55 Order name: Shoulder Right (2 View) XRAY; Complete Time: 12:39 [facility] 11/16 12:11 Order name: Shoulder 1 View; Complete Time: 12:39 [facility] 11/16 12:21 Order name: Shoulder Right Wo Cont EDDE 11/16 11:53 Order name: Shoulder Immobilizer; Complete Time: 12:48 [facility] 11/16 11:57 Order name: Seizure Precautions; Complete Time: 12:47 [facility] Administered Medications: 11:30 Drug: morphine 4 mg Route: IVP; Site: left antecubital; [facility] 11:40 Follow up: Response: Pain is unchanged, physician notified [facility] 11:30 Drug: Zofran (Ondansetron) 4 mg Route: IVP; Site: left antecubital; [facility] 11:40 Follow up: Response: Pain is unchanged, physician notified [facility] 11:40 Drug: NS 0.9% 500 ml Route: IV; Rate: bolus; Site: left antecubital; [facility] 11:40 Drug: Ketorolac 30 mg Route: IVP; Site: left antecubital; [facility] 11:40 Follow up: Response: Pain is unchanged, physician notified [facility] 11:40 Drug: Etomidate 20 mg Route: IVP; Site: left antecubital; [facility] 11:40 Drug: Versed (midazolam) 2 mg Route: IVP; Site: left antecubital; [facility] 11:45 Drug: Ativan (LORazepam) 1 mg Route: IVP; Site: left antecubital; [facility] 12:47 Follow up: Response: No adverse reaction [facility] 11:50 Drug: Keppra (levETIRAcetam) 1000 mg Route: IV; Rate: per protocol; Site: left [facility] antecubital; 12:48 Follow up: Response: No adverse reaction [facility] 12:26 CANCELLED (Duplicate Order): Etomidate 10 mg IVP once [facility] 12:48 Not Given (not indicatedd): Ativan (LORazepam) 1 mg IVP once [facility] 13:41 Drug: Cocoa (HYDROcodone-acetaminophen) 10 mg-325 mg 1 tabs Route: PO; [facility] Disposition Summary: 11/16/21 13:32 Discharge Ordered Location: Home luz Problem: new luz Symptoms: have improved luz Condition: Stable luz Diagnosis - Recurrent dislocation, right shoulder luz - Epileptic seizures related to external causes, not intractable luz Followup: luz - With: Private Physician - When: 2 - 3 days - Reason: Recheck today's complaints, Continuance of care, Re-evaluation by your physician Followup: luz - With: - When: 2 - 3 days - Reason: Recheck today's complaints, Re-evaluation by your physician Followup: luz - With: - When: 2 - 3 days - Reason: Recheck today's complaints, Re-evaluation by your physician Discharge Instructions: - Discharge Summary Sheet luz - Shoulder Dislocation luz - Shoulder Dislocation, [id number] luz - Seizure, Adult luz - Seizure, Adult, [id number] luz Forms: - Medication Reconciliation Form luz - Thank You Letter luz - Antibiotic Education luz - Prescription Opioid Use luz Prescriptions: - Keppra 750 mg Oral Tablet - take 1 tablet by ORAL route every 12 hours; 40 tablet; Refills: 0, Product luz Selection Permitted - Tylenol-Codeine #3 300 mg-30 mg Oral - take 2 tablet by ORAL route every 6 hours; 20 tablet; Refills: 0, Product luz Selection Permitted Signatures: Dispatcher [employer] EDJarett Caballero MD MD cha Hastedt, Jennifer RN RN jh6 Corrections: (The following items were deleted from the chart) 12:11 11:51 Shoulder Right 2 View+RAD.[email or web address].[email or web address] ordered. EDDE EDMS 12:26 12:26 Etomidate 10 mg IVP once ordered. 6 jh6
[2021-11-16] MEDS ORDERED: HYDROCODONE/APAP 10/325 TAB ONE (13:38)
[2021-11-16 13:52] VITALS: TEMP 98.6
[2021-11-16 13:53] VITALS: O2SAT 100
[2021-11-16 14:01] VITALS: BP 127/82
== END 2021-11-16 13:48 | disposition home or self-care (01) ==
LOC: ER 09:45
DX: M24.411 Recurrent dislocation, right shoulder (principal); G40.509 Epileptic seizures related to external causes, not intractable, without status epilepticus
CPT/HCPCS: 85025; 36415; 80053; 73200; 73020; 73030; 96375; 96374; 99284; J2250; J2405; J1953; J7040